=== PATIENT | female | born 1965 | race African-American/Black ===

== ENCOUNTER 2019-04-18 01:14 | Observation (INO) | payer BC ==
[2019-04-18] MEDS ORDERED: ASPIRIN 81 MG TABLET, CHEWABLE PO ONE (01:29)
[2019-04-18 02:30] LABS: ABSOLUTE BASOPHILS # (AUTO) 0.1 10^3/uL (0.0-0.2); ABSOLUTE EOSINOPHILS # (AUTO) 0.2 10^3/uL (0.0-0.6); ABSOLUTE LYMPHOCYTES (AUTO) 2.4 10^3/uL (0.5-4.7); ABSOLUTE MONOCYTES (AUTO) 0.9 10^3/uL (0.1-1.4); ABSOLUTE NEUT (AUTO) 4.8 10^3/uL (1.7-8.2); BASOPHILS % (AUTO) 0.7 % (0-2); EOSINOPHILS % (AUTO) 2.4 % (0-6); HEMATOCRIT 40.6 % (36.0-47.0); HEMOGLOBIN 13.1 g/dL (12.0-15.5); LYMPHOCYTES % (AUTO) 28.4 % (13-45); MEAN CORPUSCULAR HEMOGLOBIN 26.2 pg (27.0-33.4); MEAN CORPUSCULAR HGB CONC 32.3 g/dL (32.0-36.0); MEAN CORPUSCULAR VOLUME 81 fl (80-97); MONOCYTES % (AUTO) 10.9 % (3-13); PLATELET COUNT 316 10^3/uL (150-450); RED BLOOD COUNT 5.01 10^6/uL (3.72-5.28); RED CELL DISTRIBUTION WIDTH 13.7 % (11.5-14.0); SEGMENTED NEUTROPHILS % (AUTO) 57.6 % (42-78); TOTAL CELLS COUNTED % (AUTO) 100 %; WHITE BLOOD COUNT 8.4 10^3/uL (4.0-10.5)
[2019-04-18 02:51] LABS: ALBUMIN 4.3 g/dL (3.5-5.0); ALKALINE PHOSPHATASE 108 U/L (38-126); ANION GAP 7 (5-19); ASPARTATE AMINO TRANSFERASE 24 U/L (14-36); BILIRUBIN,DIRECT 0.4 mg/dL (0.0-0.4); BILIRUBIN,TOTAL 0.4 mg/dL (0.2-1.3); BLOOD UREA NITROGEN 19 mg/dL (7-20); CALCIUM 9.6 mg/dL (8.4-10.2); CARBON DIOXIDE 31 mmol/L (22-30); CHLORIDE 106 mmol/L (98-107); CREATINE KINASE 178 U/L (30-135); GLUCOSE 104 mg/dL (75-110); POTASSIUM 3.6 mmol/L (3.6-5.0); TOTAL PROTEIN 8.1 g/dL (6.3-8.2)
[2019-04-18 03:03] LABS: CREATINE KINASE MB 1.39 ng/mL (<4.55)
[2019-04-18 03:04] LABS: TROPONIN I < 0.012 ng/mL
[2019-04-18] MEDS ORDERED: NORMAL SALINE 500 ML IV ONE (06:31)
[2019-04-18] MEDS ORDERED: MORPHINE SULFATE 10 MG/ML INJ IV ONE (07:50)
--- NOTE | 2019-04-18 08:21 | RADIOLOGY REPORT (SQ) ---
EXAM DESCRIPTION: CTA CHEST; CTA ABDOMEN/PELVIS W WO COMPLETED DATE/TIME: 04/18/2019 7:44 am; 04/18/2019 7:45 am REASON FOR STUDY: sharp pain, r/o PE, dissection; tingling of LLE, sharp chest pain, r/o dissection COMPARISON: Moderate breathing motion. TECHNIQUE: CT scan of the aorta extending to the iliac bifurcation performed with intravenous contra st using helical scanning technique with dynamic intravenous contrast injection. Images reviewed with lung, soft tissue, and bone windows. Reconstructed coronal and sagittal MPR images reviewed. All wen ges stored on PACS. Advanced 3D imaging as volume rendering, MIPS, SSD performed? yes All CT scanners at this facility use dose modulation, iterative reconstruction, and/or weight based d osing when appropriate to reduce radiation dose to as low as reasonably achievable (ALARA). [facility]: Dose Right [facility]: CareDose [facility]: Dose Right [facility]: Teradose 4D [facility]: [employer] CONTRAST TYPE AND DOSE: contrast/concentration: Isovue 350.00 mg/ml; Total Contrast Delivered: 100.0 ml; Total Saline Delivered: 61.9 ml RENAL FUNCTION: GFR > 60. LIMITATIONS: None. FINDINGS: AORTA AND VESSELS: No aneurysm. No dissection. Renal arteries, SMA, celiac without stenosi s. LUNGS: No significant findings. No nodules or infiltrates. LIVER: Normal size. No masses or dilated ducts. SPLEEN: Normal size. No focal lesions. PANCREAS: No masses. No significant calcifications. No adjacent inflammation or peripancreatic fluid collections. Pancreatic duct not dilated. GALLBLADDER: No identified stones by CT criteria. No inflammatory changes to suggest cholecystitis. ADRENAL GLANDS: No significant masses or asymmetry. RIGHT KIDNEY AND URETER: Low-lying. No mass, calculi or urinary tract obstruction. LEFT KIDNEY AND URETER: No mass, calculi or urinary tract obstruction. RETROPERITONEUM: No retroperitoneal adenopathy, hemorrhage or masses. BOWEL AND PERITONEAL CAVITY: No masses or inflammatory changes. No free fluid or peritoneal masses. APPENDIX: Normal. ABDOMINAL WALL: No masses. No hernias. BONY STRUCTURES: No acute findings. 3-D IMAGING: Confirms the above findings. OTHER: No other significant finding. IMPRESSION: NO ABDOMINAL AORTIC ANEURYSM, DISSECTION OR SIGNIFICANT STENOSIS. NO SIGNIFICANT FINDING S. TECHNICAL DOCUMENTATION: JOB ID: [id number] [place]-72 Quality ID # 436: Final reports with documentation of one or more dose reduction techniques (e.g., Au tomated exposure control, adjustment of the mA and/or kV according to patient size, use of iterative reconstruction technique) 2010 [employer]- All Rights Reserved Reading location - IP/workstation name: [email or web address]
--- NOTE | 2019-04-18 08:21 | RADIOLOGY REPORT (SQ) ---
EXAM DESCRIPTION: CTA CHEST; CTA ABDOMEN/PELVIS W WO COMPLETED DATE/TIME: 04/18/2019 7:44 am; 04/18/2019 7:45 am REASON FOR STUDY: sharp pain, r/o PE, dissection; tingling of LLE, sharp chest pain, r/o dissection COMPARISON: Moderate breathing motion. TECHNIQUE: CT scan of the aorta extending to the iliac bifurcation performed with intravenous contra st using helical scanning technique with dynamic intravenous contrast injection. Images reviewed with lung, soft tissue, and bone windows. Reconstructed coronal and sagittal MPR images reviewed. All wen ges stored on PACS. Advanced 3D imaging as volume rendering, MIPS, SSD performed? yes All CT scanners at this facility use dose modulation, iterative reconstruction, and/or weight based d osing when appropriate to reduce radiation dose to as low as reasonably achievable (ALARA). [facility]: Dose Right [facility]: CareDose [facility]: Dose Right [facility]: Teradose 4D [facility]: [employer] CONTRAST TYPE AND DOSE: contrast/concentration: Isovue 350.00 mg/ml; Total Contrast Delivered: 100.0 ml; Total Saline Delivered: 61.9 ml RENAL FUNCTION: GFR > 60. LIMITATIONS: None. FINDINGS: AORTA AND VESSELS: No aneurysm. No dissection. Renal arteries, SMA, celiac without stenosi s. LUNGS: No significant findings. No nodules or infiltrates. LIVER: Normal size. No masses or dilated ducts. SPLEEN: Normal size. No focal lesions. PANCREAS: No masses. No significant calcifications. No adjacent inflammation or peripancreatic fluid collections. Pancreatic duct not dilated. GALLBLADDER: No identified stones by CT criteria. No inflammatory changes to suggest cholecystitis. ADRENAL GLANDS: No significant masses or asymmetry. RIGHT KIDNEY AND URETER: Low-lying. No mass, calculi or urinary tract obstruction. LEFT KIDNEY AND URETER: No mass, calculi or urinary tract obstruction. RETROPERITONEUM: No retroperitoneal adenopathy, hemorrhage or masses. BOWEL AND PERITONEAL CAVITY: No masses or inflammatory changes. No free fluid or peritoneal masses. APPENDIX: Normal. ABDOMINAL WALL: No masses. No hernias. BONY STRUCTURES: No acute findings. 3-D IMAGING: Confirms the above findings. OTHER: No other significant finding. IMPRESSION: NO ABDOMINAL AORTIC ANEURYSM, DISSECTION OR SIGNIFICANT STENOSIS. NO SIGNIFICANT FINDING S. TECHNICAL DOCUMENTATION: JOB ID: [id number] [place]-72 Quality ID # 436: Final reports with documentation of one or more dose reduction techniques (e.g., Au tomated exposure control, adjustment of the mA and/or kV according to patient size, use of iterative reconstruction technique) 2010 [employer] All Rights Reserved Reading location - IP/workstation name: [email or web address]
--- NOTE | 2019-04-18 08:41 | ER Document Report ---
Entered by ERICK ROBERTS SCRIBE 04/18/19 0630 Acting as scribe for:MARCELLUS HAN MD ED General - General Chief Complaint: Chest Pain > 30 Stated Complaint: CHEST PAIN Time Seen by Provider: 04/18/19 06:04 Notes: Patient is a 53-year-old female with history of fibromyalgia, anxiety presenting to the emergency department complaining of multiple symptoms. Patient first states that she is having excruciating chest pain, she describes it as "being punched in the chest". Patient states that that began yesterday at 1000, and it has been constant. Patient states that she is also been experiencing neck pain, it "feels like someone is holding it with pressure". Patient states that she is also experiencing back pain, abdominal pain, and bilateral leg pain that she describes as tingling, or "like blood is rushing". Patient states that she is also been experiencing nausea. Patient denies experiencing any vomiting, cough, congestion, having it history of heart attacks, strokes, or blood clots. TRAVEL OUTSIDE OF THE [place] IN LAST 30 DAYS: No - Related Data Allergies/Adverse Reactions: No Known Allergies Allergy (Unverified 04/18/19 01:16) Past Medical History - General Information source: Patient - Social History Smoking Status: Unknown if Ever Smoked Cigarette use (# per day): No Chew tobacco use (# tins/day): No Frequency of alcohol use: None Drug Abuse: None Family History: Reviewed & Not Pertinent Patient has suicidal ideation: No Patient has homicidal ideation: No - Past Medical History Cardiac Medical History: Reports: Hx Hypertension Neurological Medical History: Reports: Hx Migraine Psychiatric Medical History: Reports: Hx Depression Review of Systems - Review of Systems Constitutional: No symptoms reported EENT: No symptoms reported Cardiovascular: See HPI, Chest pain Respiratory: No symptoms reported. denies: Cough Gastrointestinal: See HPI, Abdominal pain. denies: Vomiting Genitourinary: No symptoms reported Female Genitourinary: No symptoms reported Musculoskeletal: See HPI, Back pain, Neck pain, Other - Leg pain bilaterally Skin: No symptoms reported Hematologic/Lymphatic: No symptoms reported Neurological/Psychological: See HPI, Tingling -: Yes All other systems reviewed and negative Physical Exam - Vital signs Vitals: Pulse Ox 98 04/18/19 01:29 - Notes Notes: Physical Exam: General: Alert, appears well. HEENT: Normocephalic. Atraumatic. PERRL. Extraocular movements intact. Oropharynx clear. Neck: Supple. Non-tender. Respiratory: No respiratory distress. Clear and equal breath sounds bilaterally. Cardiovascular: Regular rate and rhythm. Abdominal: Normal Inspection. Non-tender. No distension. Normal Bowel Sounds. Back: Non-tender. No deformity or step off. Extremities: Moves all four extremities. Upper extremities: Normal inspection. Normal ROM. Lower extremities: +2 dorsalis pedis pulses bilaterally. Normal inspection. No edema. Normal ROM. Neurological: Normal cognition. AAOx4. Normal speech. Psychological: Normal affect. Normal Mood. Skin: Warm. Dry. Normal color. Course - Re-evaluation Re-evalutation: 04/18/19 08:40 Negative CTA of chest abdomen pelvis. Will be admitted for further chest pain rule out heart score 4 - Vital Signs Vital signs: Temp Pulse Resp BP Pulse Ox 97.6 F 79 13 184/106 H 100 04/18/19 01:32 04/18/19 06:26 04/18/19 11:01 04/18/19 11:01 04/18/19 11:01 - Laboratory Result Diagrams: 04/18/19 02:20 04/18/19 02:20 Laboratory results interpreted by me: 04/18/19 04/18/19 02:20 02:20 MCH 26.2 L Carbon Dioxide 31 H Creatinine 1.35 H Est GFR ( Amer) 49 L Est GFR (Non-Af Amer) 41 L Creatine Kinase 178 H Discharge - Discharge Clinical Impression: Chest pain Qualifiers: Chest pain type: unspecified Qualified Code(s): R07.9 - Chest pain, unspecified Condition: Good Disposition: ADMITTED OBSERVATION Admitting Provider: Shelia (Hospitalist) Unit Admitted: Telemetry Scribe Attestation: 04/18/19 13:40 I personally performed the services described documentation, reviewed and edited the documentation which was dictated to describe my presence, and it accurately records my words and actions. I personally performed the services described in the documentation, reviewed and edited the documentation which was dictated to the scribe in my presence, and it accurately records my words and actions.
[2019-04-18] MEDS ORDERED: ALBUTEROL SULFATE 0.083% NEB 2.5 MG/3 ML AMPUL NEB PRN (09:58)
[2019-04-18] MEDS ORDERED: ACETAMINOPHEN 325 MG TABLET PO PRN (09:58)
[2019-04-18] MEDS ORDERED: MAGNESIUM HYDROXIDE SUSP 30 ML UDCUP PO PRN (10:03)
[2019-04-18] MEDS ORDERED: MAG HYDROX/AL HYDROX/SIMETH SUSP 30 ML UDCUP PO PRN (10:03)
[2019-04-18] MEDS ORDERED: ONDANSETRON HCL INJ/PF 4 MG/2 ML SDV IV PRN (10:03)
[2019-04-18] MEDS ORDERED: HYDROXYZINE PAMOATE 25 MG CAPSULE PO PRN (10:05)
[2019-04-18] MEDS ORDERED: TRAMADOL HCL 50 MG TABLET PO PRN (10:05)
[2019-04-18] MEDS: BUSPIRONE HCL 10 MG TABLET PO SCH ×2 (10:39→21:51)
[2019-04-18 11:55] LABS: APPEARANCE,URINE CLEAR; BILIRUBIN,URINE NEGATIVE (NEGATIVE); COLOR,URINE YELLOW; GLUCOSE, URINE NEGATIVE (NEGATIVE); KETONES,URINE NEGATIVE (NEGATIVE); LEUKOCYTE ESTERASE,URINE MODERATE (NEGATIVE); NITRITE,URINE NEGATIVE (NEGATIVE); PROTEIN,URINE NEGATIVE (NEGATIVE); URINE SPECIFIC GRAVITY 1.048; UROBILINOGEN,URINE NEGATIVE mg/dL (<2.0)
[2019-04-18 12:11] LABS: URINE AMPHETAMINES SCREEN NEGATIVE; URINE BARBITURATES SCREEN NEGATIVE; URINE BENZODIAZEPINES SCREEN NEGATIVE; URINE COCAINE SCREEN NEGATIVE; URINE METHADONE SCREEN NEGATIVE; URINE PHENCYCLIDINE SCREEN NEGATIVE
[2019-04-18 12:24] LABS: URINE MARIJUANA (THC) SCREEN UNCONFIRMED POSITIVE
[2019-04-18] MEDS ORDERED: HYDROXYZINE PAMOATE 50 MG CAPSULE PO PRN (13:29)
[2019-04-18] MEDS: NORMAL SALINE 1000 ML 1,000 ML IV PRN ×2 (13:44→21:56)
[2019-04-18] MEDS: HEPARIN SOD (PORCINE) 5,000 UNIT/ML 1 ML VIAL SUBCUT SCH ×2 (13:46→21:52)
[2019-04-18] MEDS: GABAPENTIN 100 MG CAPSULE PO SCH ×2 (15:49→21:52)
[2019-04-18] MEDS: LIDOCAINE 5% (700 MG) TRANSDERMAL ADH..PATCH TP SCH (15:51)
[2019-04-18] MEDS: CYCLOBENZAPRINE HCL 10 MG TABLET PO PRN (16:21)
[2019-04-18] MEDS: MELOXICAM 7.5 MG TABLET PO PRN (16:21)
--- NOTE | 2019-04-18 17:40 | RADIOLOGY REPORT (SQ) ---
EXAM DESCRIPTION: CT HEAD WITHOUT COMPLETED DATE/TIME: 04/18/2019 11:00 am REASON FOR STUDY: GONZALEZ, Lt side weakness, radiculopathy COMPARISON: None. TECHNIQUE: Axial images acquired through the brain without intravenous contrast. Images reviewed wi th bone, brain and subdural windows. Additional sagittal and coronal reconstructions were generated. Images stored on PACS. All CT scanners at this facility use dose modulation, iterative reconstruction, and/or weight based d osing when appropriate to reduce radiation dose to as low as reasonably achievable (ALARA). [facility]: Dose Right [facility]: CareDose [facility]: Dose Right [facility]: Teradose 4D [facility]: [employer] RADIATION DOSE: CT Rad equipment meets quality standard of care and radiation dose reduction techniq ues were employed. CTDIvol: 53.2 mGy. DLP: 964 mGy-cm. mGy. LIMITATIONS: None. FINDINGS: VENTRICLES: Normal size and contour. CEREBRUM: No masses. No hemorrhage. No midline shift. No evidence for acute infarction. Normal gra y/white matter differentiation. No areas of low density in the white matter. CEREBELLUM: No masses. No hemorrhage. No alteration of density. No evidence for acute infarction. EXTRAAXIAL SPACES: No fluid collections. No masses. ORBITS AND GLOBE: No intra- or extraconal masses. Normal contour of globe without masses. CALVARIUM: No fracture. PARANASAL SINUSES: No fluid or mucosal thickening. SOFT TISSUES: No mass or hematoma. OTHER: No other significant finding. IMPRESSION: NORMAL BRAIN CT WITHOUT CONTRAST. EVIDENCE OF ACUTE STROKE: NO. COMMENT: Quality ID # 436: Final reports with documentation of one or more dose reduction techniques (e.g., Automated exposure control, adjustment of the mA and/or kV according to patient size, use of iterative reconstruction technique) TECHNICAL DOCUMENTATION: JOB ID: [id number] [employer]- All Rights Reserved Reading location - IP/workstation name: [email or web address]
[2019-04-18] MEDS ORDERED: AMITRIPTYLINE HCL 50 MG TABLET PO SCH (18:00)
--- NOTE | 2019-04-18 18:55 | PDOC H&P ---
History of Present Illness Admission Date/PCP: 04/18/19 08:56 Patient complains of: Left sided neuropathy, atypical chest pain History of Present Illness: LITA OSHEA is a 53 year old female with a past medical history significant for Hypertension, migraine headaches, fibromyalgia, chronic migraines, depression and anxiety, and morbid obesity who presented to the emergency department today with multiple complaints. She reports that several days of left sided radiculopathy first noted in her left lower extremity radiating to her lumbar spine followed by onset of left hand neuropathy beginning in her fifth and fourth digits and radiating to posteriorly to her shoulder followed by left neck pain described as crushing, and left chest wall pain associated with feeling faint/week. The patient reports that her symptoms are unlike any prior fibromyalgia pain. Evaluation in the emergency department revealed hypertension (blood pressure 184/106), otherwise normal vital signs, unremarkable CBC, creatinine of 1.35 (unknown baseline), mildly elevated CK (178), negative troponins x3, normal TSH, negative urinalysis, UDS positive for opiates and marijuana (did receive morphine in the ED), CT Chest/ABD/Pelvis negative for dissection/stenosis. Patient was provided IV morphine and despite this remains in severe pain. She is referred to the hospitalist service for admission and management of the above-stated complaints and findings. Past Medical History Cardiac Medical History: Reports: Hypertension Denies: Coronary Artery Disease, Myocardial Infarction, Hyperlipidema Pulmonary Medical History: Reports: None EENT Medical History: Reports: None Neurological Medical History: Reports: Migraine Denies: Ischemic CVA, Seizures Endocrine Medical History: Reports: Obesity Denies: Diabetes Mellitus Type 1, Diabetes Mellitus Type 2, Hypothyroidism Renal/ Medical History: Reports: None Malignancy Medical History: Reports: None GI Medical History: Reports: None Musculoskeltal Medical History: Reports: Fibromyalgia Psychiatric Medical History: Reports: Depression, General Anxiety Disorder, Substance Abuse Denies: Bipolar Disorder, Tobacco Dependency Hematology: Denies: Anemia, Sickle Cell Disease Past Surgical History Past Surgical History: Reports: Tubal Ligation, Other - Bladder Social History Information Source: Patient Lives with: Family - Visiting from [place] Smoking Status: Never Smoker Frequency of Alcohol Use: Rare Hx Recreational Drug Use: Yes Drugs: Marijuana Hx Prescription Drug Abuse: No - Advance Directive Resuscitation Status: Full Code Surrogate healthcare decision maker:: The patient's , [place], Family History Family History: Reviewed & Not Pertinent Parental Family History Reviewed: Yes Children Family History Reviewed: Yes Sibling(s) Family History Reviewed.: Yes Medication/Allergy Home Medications: Amitriptyline HCl [Elavil 50 mg Tablet] 50 mg PO QPM 04/18/19 Amlodipine Besylate [Norvasc 5 mg Tablet] 5 mg PO DAILY 04/18/19 Hydroxyzine Pamoate [Vistaril 50 mg Capsule] 50 mg PO Q12HP PRN 04/18/19 Meloxicam [Mobic] 7.5 mg PO Q12HP PRN 04/18/19 Risperidone [Risperdal 1 mg Tablet] 1 mg PO QHS 04/18/19 Triamterene/Hydrochlorothiazid [Triamterene-Hctz 37.5-25 mg Cp] 1 cap PO DAILY 04/18/19 Vilazodone HCl [Viibryd] 40 mg PO QAM 04/18/19 Allergies/Adverse Reactions: No Known Allergies Allergy (Unverified 04/18/19 01:16) Review of Systems Constitutional: ABSENT: chills, fever(s), headache(s), weight gain, weight loss Eyes: ABSENT: visual disturbances Ears: ABSENT: hearing changes Cardiovascular: PRESENT: chest pain. ABSENT: dyspnea on exertion, edema, orthropnea, palpitations Respiratory: ABSENT: cough, hemoptysis Gastrointestinal: ABSENT: abdominal pain, constipation, diarrhea, hematemesis, hematochezia, nausea, vomiting Genitourinary: ABSENT: dysuria, hematuria Musculoskeletal: ABSENT: joint swelling Integumentary: ABSENT: rash, wounds Neurological: PRESENT: paresthesias, tingling, weakness. ABSENT: abnormal gait, abnormal speech, confusion, dizziness, focal weakness, syncope Psychiatric: PRESENT: anxiety, depression. ABSENT: homidical ideation, suicidal ideation Endocrine: ABSENT: cold intolerance, heat intolerance, polydipsia, polyuria Hematologic/Lymphatic: ABSENT: easy bleeding, easy bruising Physical Exam Vital Signs: Temp Pulse Resp BP Pulse Ox 97.5 F 73 18 141/75 H 100 04/18/19 12:09 04/18/19 12:09 04/18/19 12:09 04/18/19 12:09 04/18/19 12:09 Intake & Output 04/17/19 04/18/1919 06:59 06:59 06:59 Intake Total 500 Balance 500 Weight 99.79 kg General appearance: PRESENT: no acute distress, well-developed, well-nourished Head exam: PRESENT: atraumatic, normocephalic Eye exam: PRESENT: conjunctiva pink, EOMI, PERRLA. ABSENT: scleral icterus Ear exam: PRESENT: normal external ear exam Mouth exam: PRESENT: moist, tongue midline Neck exam: ABSENT: carotid bruit, JVD, lymphadenopathy, thyromegaly Respiratory exam: PRESENT: clear to auscultation tamia, symmetrical, unlabored. ABSENT: rales, rhonchi, wheezes Cardiovascular exam: PRESENT: RRR, +S1, +S2. ABSENT: diastolic murmur, rubs, systolic murmur Pulses: PRESENT: normal dorsalis pedis pul Vascular exam: PRESENT: normal capillary refill GI/Abdominal exam: PRESENT: normal bowel sounds, soft. ABSENT: distended, guarding, mass, organolmegaly, rebound, tenderness Rectal exam: PRESENT: deferred Extremities exam: PRESENT: full ROM. 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 ABSENT: motor sensory deficit Psychiatric exam: PRESENT: appropriate affect, normal mood. ABSENT: homicidal ideation, suicidal ideation Skin exam: PRESENT: dry, intact, warm. ABSENT: cyanosis, rash Results Laboratory Results: 04/18/19 02:20 04/18/19 02:20 04/18/19 04/18/19 04/18/19 02:20 02:20 10:30 WBC 8.4 RBC 5.01 Hgb 13.1 Hct 40.6 MCV 81 MCH 26.2 L MCHC 32.3 RDW 13.7 Plt Count 316 Seg Neutrophils % 57.6 Lymphocytes % 28.4 Monocytes % 10.9 Eosinophils % 2.4 Basophils % 0.7 Absolute Neutrophils 4.8 Absolute Lymphocytes 2.4 Absolute Monocytes 0.9 Absolute Eosinophils 0.2 Absolute Basophils 0.1 Sodium 143.9 Potassium 3.6 Chloride 106 Carbon Dioxide 31 H Anion Gap 7 BUN 19 Creatinine 1.35 H Est GFR ( Amer) 49 L Est GFR (Non-Af Amer) 41 L Glucose 104 Calcium 9.6 Total Bilirubin 0.4 AST 24 Alkaline Phosphatase 108 Total Protein 8.1 Albumin 4.3 TSH 0.59 Urine Color Urine Appearance Urine pH Ur Specific [place] Urine Protein Urine Glucose (UA) Urine Ketones Urine Blood Urine Nitrite Ur Leukocyte Esterase Urine WBC (Auto) Urine RBC (Auto) 04/18/19 11:45 WBC RBC Hgb Hct MCV MCH MCHC RDW Plt Count Seg Neutrophils % Lymphocytes % Monocytes % Eosinophils % Basophils % Absolute Neutrophils Absolute Lymphocytes Absolute Monocytes Absolute Eosinophils Absolute Basophils Sodium Potassium Chloride Carbon Dioxide Anion Gap BUN Creatinine Est GFR ( Amer) Est GFR (Non-Af Amer) Glucose Calcium Total Bilirubin AST Alkaline Phosphatase Total Protein Albumin TSH Urine Color YELLOW Urine Appearance CLEAR Urine pH 5.0 Ur Specific [place] 1.048 Urine Protein NEGATIVE Urine Glucose (UA) NEGATIVE Urine Ketones NEGATIVE Urine Blood SMALL H Urine Nitrite NEGATIVE Ur Leukocyte Esterase MODERATE H Urine WBC (Auto) 1 Urine RBC (Auto) 1 04/18/19 04/18/19 04/18/19 02:20 02:20 05:30 Creatine Kinase 178 H CK-MB (CK-2) 1.39 Troponin I < 0.012 < 0.012 04/18/19 09:50 Creatine Kinase CK-MB (CK-2) Troponin I < 0.012 Impressions: Head CT 04/18/19 00:00 IMPRESSION: NORMAL BRAIN CT WITHOUT CONTRAST. EVIDENCE OF ACUTE STROKE: NO. Abdomen/Pelvis CTA 04/18/19 06:32 IMPRESSION: NO ABDOMINAL AORTIC ANEURYSM, DISSECTION OR SIGNIFICANT STENOSIS. NO SIGNIFICANT FINDINGS. Chest/Abdomen CTA 04/18/19 06:32 IMPRESSION: NO ABDOMINAL AORTIC ANEURYSM, DISSECTION OR SIGNIFICANT STENOSIS. NO SIGNIFICANT FINDINGS. Assessment and Plan - Diagnosis (1) Radiculopathy Is this a current diagnosis for this admission?: Yes Plan: The patient has atypical radiculopathy of both lower and upper left extremities without known injury present for the previous 3 to 5 days and slowly worsening. Patient does admit to fibromyalgia, migraine headaches, anxiety and depression, however, states that this pain is unlike anything she has experienced before. 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 Her radiculopathy pain is more classic to her left upper arm (beginning in fourth and fifth fingers radiating up her posterior arm, worsened by elbow extension); therefore, will obtain a cervical spine CT. The lower extremity pain is not typical of sciatica, does not follow a dermatome, and therefore will not obtain advanced imaging of her lumbar spine. We will continue the patient's home medication regiment of amitriptyline and meloxicam. In addition, we will start as needed Tylenol, tramadol, and Flexeril. Trial gabapentin 3 times daily and lidocaine patches. Consider mental health and/or pain management consultations. (2) Atypical chest pain Is this a current diagnosis for this admission?: Yes Plan: Patient with atypical chest pain; began while at rest, not exacerbated by activity. She reports that her pain is intermittent, beginning to her right sternal border and radiating along the chest wall beneath her left breast and associated with reflux. Chest x-ray is benign. EKG demonstrates NSR, no ischemic changes. Troponins are negative x3. Likely musculoskeletal as the pain is described as radiating along her chest wa ll; "just beneath the skin." May also be related to her fibromyalgia or psychosomatic related to her anxiety/depression. Would recommend following up with her primary care provider upon return to her home in [place] to discuss outpatient stress testing. (3) Anxiety and depression Is this a current diagnosis for this admission?: Yes Plan: Continue the patient's home medication regiment of amitriptyline, Vistaril as needed, Risperdal. Reassurance provided. Consider mental health consultation. (4) Fibromyalgia Is this a current diagnosis for this admission?: Yes Plan: Continue home medication regimen of amitriptyline, meloxicam, Risperdal. As needed pain medications as above. - Time Time Spent with patient: 35 or more minutes Medications reviewed and adjusted accordingly: Yes Anticipated discharge: Home Within: within 24 hours
--- NOTE | 2019-04-18 19:13 | RADIOLOGY REPORT (SQ) ---
EXAM DESCRIPTION: CT CERVICAL SPINE WITHOUT COMPLETED DATE/TIME: 04/18/2019 11:00 am REASON FOR STUDY: GONZALEZ, Lt side weakness, radiculopathy COMPARISON: None. TECHNIQUE: Axial images acquired through the cervical spine without intravenous contrast. Images re viewed with lung, soft tissue and bone windows. Reconstructed coronal and sagittal MPR images review ed. Images stored on PACS. All CT scanners at this facility use dose modulation, iterative reconstruction, and/or weight based d osing when appropriate to reduce radiation dose to as low as reasonably achievable (ALARA). [facility]: Dose Right [facility]: CareDose [facility]: Dose Right [facility]: Teradose 4D [facility]: [employer] RADIATION DOSE: CT Rad equipment meets quality standard of care and radiation dose reduction techniq ues were employed. CTDIvol: 20.6 mGy. DLP: 414 mGy-cm. mGy. LIMITATIONS: None. FINDINGS: ALIGNMENT: Anatomic. MINERALIZATION: Normal. VERTEBRAL BODIES: No fractures or dislocation. DISCS: Multilevel disc space narrowing with osteophytes. Multilevel foraminal osteophytes. Most pro minent narrowing C3-4 on the left. FACETS, LATERAL MASSES, POSTERIOR ELEMENTS: The set arthropathy at C7-T1. No fractures. HARDWARE: None in the spine. VISUALIZED RIBS: No fractures. LUNG APICES AND SOFT TISSUES: No significant or acute findings. OTHER: No other significant finding. IMPRESSION: Degenerative disc disease with multilevel disc space narrowing and osteophytes. Most pr ominent foraminal narrowing C3-4 on the left. TECHNICAL DOCUMENTATION: JOB ID: [id number] Quality ID # [id number]: Final reports with documentation of one or more dose reduction techniques (e.g., Au tomated exposure control, adjustment of the mA and/or kV according to patient size, use of iterative reconstruction technique) 2010 [employer]- All Rights Reserved Reading location - IP/workstation name: [email or web address]
[2019-04-18] MEDS: FAMOTIDINE 20 MG TABLET PO SCH (21:52)
[2019-04-18] MEDS ORDERED: RISPERIDONE 1 MG TABLET PO SCH (22:00)
[2019-04-19] MEDS: GABAPENTIN 100 MG CAPSULE PO SCH ×2 (06:05→15:27)
[2019-04-19] MEDS: HEPARIN SOD (PORCINE) 5,000 UNIT/ML 1 ML VIAL SUBCUT SCH (06:06)
[2019-04-19] MEDS ORDERED: (PENDING PHARMACY ID) (Vilazodone Hcl [Viibryd] 40 MG) PO SCH (08:00)
[2019-04-19] MEDS: BUSPIRONE HCL 10 MG TABLET PO SCH (09:58)
[2019-04-19] MEDS: LIDOCAINE 5% (700 MG) TRANSDERMAL ADH..PATCH TP SCH (09:58)
[2019-04-19] MEDS: FAMOTIDINE 20 MG TABLET PO SCH (09:58)
[2019-04-19] MEDS: MELOXICAM 7.5 MG TABLET PO PRN (09:59)
[2019-04-19] MEDS ORDERED: (PENDING PHARMACY ID) (Triamterene/Hydrochlorothiazid [Triamterene-Hctz 37.5-25 Mg Cp] 1 C PO SCH (10:00)
[2019-04-19] MEDS ORDERED: TRIAMTERENE/HYDROCHLOROTHIAZIDE 37.5-25 MG TABLET PO SCH (10:00)
[2019-04-19] MEDS ORDERED: DOCUSATE SODIUM 100 MG CAPSULE PO SCH (10:00)
[2019-04-19] MEDS ORDERED: AMLODIPINE BESYLATE 5 MG TABLET PO SCH (10:00)
[2019-04-19] MEDS: NORMAL SALINE 1000 ML 1,000 ML IV PRN (10:01)
[2019-04-19] MEDS: CYCLOBENZAPRINE HCL 10 MG TABLET PO PRN (10:12)
[2019-04-19 15:19] VITALS: BP 142/75
--- NOTE | 2019-04-20 00:36 | EKG REPORT ---
SEVERITY:- ABNORMAL ECG - SINUS RHYTHM LEFT VENTRICULAR HYPERTROPHY : Confirmed by: Odessa Moreno 20-Apr-2019 00:35:35
--- NOTE | 2019-04-21 17:39 | PDOC DISCHARGE SUMMARY ---
General - Admit/Disc Date/PCP Admission Date/Primary Care Provider: 04/18/19 08:56 Discharge Date: 04/19/19 - Discharge Diagnosis (1) Radiculopathy Is this a current diagnosis for this admission?: Yes (2) Atypical chest pain Is this a current diagnosis for this admission?: Yes (3) Anxiety and depression Is this a current diagnosis for this admission?: Yes (4) Fibromyalgia Is this a current diagnosis for this admission?: Yes - Additional Information Resuscitation Status: Full Code Discharge Diet: Cardiac Discharge Activity: Activity As Tolerated, Balance Activity w/Rest Prescriptions: Cyclobenzaprine HCl [Flexeril 10 mg Tablet] 10 mg PO Q8HP PRN #10 tablet PRN Reason: Gabapentin [Neurontin 100 mg Capsule] 100 mg PO Q8 #30 capsule Lidocaine [Lidoderm 5% (700 mg) Transdermal Patch] 2 patch TP DAILY #20 adh..patch Tramadol HCl [Ultram 50 mg Tablet] 50 mg PO Q4HP PRN #20 tablet PRN Reason: Home Medications: Amitriptyline HCl [Elavil 50 mg Tablet] 50 mg PO QPM 04/18/19 Amlodipine Besylate [Norvasc 5 mg Tablet] 5 mg PO DAILY 04/18/19 Hydroxyzine Pamoate [Vistaril 50 mg Capsule] 50 mg PO Q12HP PRN 04/18/19 Meloxicam [Mobic] 7.5 mg PO Q12HP PRN 04/18/19 Risperidone [Risperdal 1 mg Tablet] 1 mg PO QHS 04/18/19 Triamterene/Hydrochlorothiazid [Triamterene-Hctz 37.5-25 mg Cp] 1 cap PO DAILY 04/18/19 Vilazodone HCl [Viibryd] 40 mg PO QAM 04/18/19 Acetaminophen [Tylenol 325 mg Tablet] 650 mg PO Q4HP PRN tablet 04/19/19 Cyclobenzaprine HCl [Flexeril 10 mg Tablet] 10 mg PO Q8HP PRN #10 tablet 04/19/19 Docusate Sodium [Colace 100 mg Capsule] 100 mg PO DAILY capsule 04/19/19 Gabapentin [Neurontin 100 mg Capsule] 100 mg PO Q8 #30 capsule 04/19/19 Lidocaine [Lidoderm 5% (700 mg) Transdermal Patch] 2 patch TP DAILY #20 adh..patch 04/19/19 Tramadol HCl [Ultram 50 mg Tablet] 50 mg PO Q4HP PRN #20 tablet 04/19/19 History of Present Illness History of Present Illness: LITA OSHEA is a 53 year old female with a past medical history significant for Hypertension, migraine headaches, fibromyalgia, chronic migraines, depression and anxiety, and morbid obesity who presented to the emergency department today with multiple complaints. She reports that several days of l eft sided radiculopathy first noted in her left lower extremity radiating to her lumbar spine followed by onset of left hand neuropathy beginning in her fifth and fourth digits and radiating to posteriorly to her shoulder followed by left neck pain described as crushing, and left chest wall pain associated with feeling faint/week. The patient reports that her symptoms are unlike any prior fibromyalgia pain. Evaluation in the emergency department revealed hypertension (blood pressure 184/106), otherwise normal vital signs, unremarkable CBC, creatinine of 1.35 (unknown baseline), mildly elevated CK (178), negative troponins x3, normal TSH, negative urinalysis, UDS positive for opiates and marijuana (did receive morphine in the ED), CT Chest/ABD/Pelvis negative for dissection/stenosis. Rolanda ent was provided IV morphine and despite this remains in severe pain. She is referred to the hospitalist service for admission and management of the above-stated complaints and findings. Hospital Course Hospital Course: The patient was admitted to the medical floor and monitored on continuous cardiac telemetry. She remained in NSR throughout her admission. Serial troponins were negative, EKG showed NSR without ischemic changes, and CXR was benign. Her chest discomfort is most likely musculoskeletal as the pain is described as radiating along her chest wall; "just beneath the skin," and may also be related to her fibromyalgia or psychosomatic related to her anxiety/depression. The patient has atypical radiculopathy of both lower and upper left extremities without known injury present for the previous 3 to 5 days and slowly worsening. Patient does admit to fibromyalgia, migraine headaches, anxiety and depression, however, states that this pain is unlike anything she has experienced before. 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 Her radiculopathy pain is more classic to her left upper arm (beginning in fourth and fifth fingers radiating up her posterior arm, worsened by elbow extension). The lower extremity pain is not typical of sciatica and did not follow a dermatome. Her symptoms had resolved by the following day at time of discharge. Patient had a CT cHest/ABD/Pelvis by ED provider to r/o aortic dissection. CT Head was negative for acute findings. CT Cervical spine demonstrated DDD with multilevel disc narrowing and osteophytes; most prominent at C3-4. Discussed with patient that these findings may explain her arm radiculopathy but would not account for her leg pain from the prior day. We also discussed that anxiety/stress/fibromyalgia may have played a role. PAtient was receptive and reassured by the negative work up. The patient was discharged home in stable condition. She was advised to continue her home medication regiment. She was provided prescriptions for lidoderm patches and a 3 day supply of flexeril and tramadol as these had been effective in relieving her discomfort. She was advised to follow up with her PCP upon return to [place] and to return to the emergency room as needed for concerning symptoms. Physical Exam Vital Signs: Temp Pulse Resp BP Pulse Ox 97.7 F 83 17 142/75 H 97 04/19/19 15:13 04/19/19 15:13 04/19/19 15:13 04/19/19 15:13 04/19/19 15:13 Intake & Output 04/20/19 04/21/19 04/22/19 06:59 06:59 06:59 Intake Total 462 Balance 462 General appearance: PRESENT: no acute distress, cooperative, obese, well- developed, well-nourished Head exam: PRESENT: atraumatic, normocephalic Eye exam: PRESENT: conjunctiva pink, EOMI, PERRLA. ABSENT: scleral icterus Ear exam: PRESENT: normal external ear exam Mouth exam: PRESENT: moist, tongue midline Neck exam: ABSENT: carotid bruit, JVD, lymphadenopathy, thyromegaly Respiratory exam: PRESENT: clear to auscultation tamia, symmetrical, unlabored. ABSENT: rales, rhonchi, wheezes Cardiovascular exam: PRESENT: RRR. ABSENT: diastolic murmur, rubs, systolic murmur Pulses: PRESENT: normal dorsalis pedis pul Vascular exam: PRESENT: normal capillary refill GI/Abdominal exam: PRESENT: normal bowel sounds, soft. ABSENT: distended, guarding, mass, organolmegaly, rebound, tenderness Rectal exam: PRESENT: deferred Extremities exam: PRESENT: full ROM. ABSENT: calf tenderness, clubbing, pedal edema Neurological exam: PRESENT: alert, awake, oriented to person, oriented to place, oriented to time, oriented to situation, CN II-XII grossly intact. ABSENT: motor sensory deficit Psychiatric exam: PRESENT: appropriate affect, normal mood. ABSENT: homicidal ideation, suicidal ideation Skin exam: PRESENT: dry, intact, warm. ABSENT: cyanosis, rash Results Laboratory Results: 04/18/19 02:20 04/18/19 02:20 04/18/19 04/18/19 04/18/19 02:20 02:20 05:30 Creatine Kinase 178 H CK-MB (CK-2) 1.39 Troponin I < 0.012 < 0.012 04/18/19 09:50 Creatine Kinase CK-MB (CK-2) Troponin I < 0.012 Impressions: Cervical Spine CT 04/18/19 00:00 IMPRESSION: Degenerative disc disease with multilevel disc space narrowing and osteophytes. Most prominent foraminal narrowing C3-[address] on [address] Head CT 04/18/19 00:00 IMPRESSION: NORMAL BRAIN CT WITHOUT CONTRAST. EVIDENCE OF ACUTE STROKE: NO. Abdomen/Pelvis CTA 04/18/19 06:32 IMPRESSION: NO ABDOMINAL AORTIC ANEURYSM, DISSECTION OR SIGNIFICANT STENOSIS. NO SIGNIFICANT FINDINGS. Chest/Abdomen CTA 04/18/19 06:32 IMPRESSION: NO ABDOMINAL AORTIC ANEURYSM, DISSECTION OR SIGNIFICANT STENOSIS. NO SIGNIFICANT FINDINGS. Qualifiers - * PATIENT BEING DISCHARGED WITH ANY OF THE FOLLOWING DIAGNOSIS: No Acute Heart Failure - Is this a Heart Failure Patient?: No Plan Discharge Plan: Patient is discharged home with self care. She is advised to follow up with primary care provider upon return home ([place]). Recommend discussing further cardiac testing (stress test) with PCP at follow up appointment. Patient may benefit from a neuropsychologist referral. Take medications as prescribed. Return to the emergency department as needed for concerning symptoms. Time Spent: Greater than 30 Minutes
== END 2019-04-19 15:45 | disposition home or self-care (01) ==
LOC: ER 01:14 → EH 08:56 → 5 11:52
PROVIDERS: ADMIT Internal Medicine; ATTEND Internal Medicine
DX: M54.10 Radiculopathy, site unspecified (principal); R07.89 Other chest pain; F41.1 Generalized anxiety disorder; F32.9 Major depressive disorder, single episode, unspecified; R53.1 Weakness; M79.7 Fibromyalgia; I10 Essential (primary) hypertension; M50.31 Other cervical disc degeneration, high cervical region; R11.0 Nausea; R10.9 Unspecified abdominal pain; E66.01 Morbid (severe) obesity due to excess calories; G43.909 Migraine, unspecified, not intractable, without status migrainosus; M79.662 Pain in left lower leg; M79.661 Pain in right lower leg; M54.9 Dorsalgia, unspecified; R78.4 Finding of other drugs of addictive potential in blood; Z79.899 Other long term (current) drug therapy
CPT/HCPCS: 93005; 99285; 96361; 96374; 36415; 82553; 82550; 84443; 85025; 85652; 86140; 80053; 81001; 84484; 80307; 70450; 71275; 72125; 74174; 93010; G0378 ×3; J3490 ×3; J1644; J2270; J7030 ×2; J7040